=== PATIENT | male | born 1970 ===

== ENCOUNTER 2024-06-13 10:05 | Day surgery (SDC) | payer OTHER ==
[~2024-06-13] VITALS: Ht 172.7 cm; Wt 105.0 kg
[~2024-06-13 10:05] MED LIST: ALBU90OI INH; LOSARTAN POTAS100 M1 PO
[2024-06-13] MEDS ORDERED: Midazolam HCl 1MG / ML 2ML Vial ONE (10:18)
[2024-06-13] MEDS ORDERED: Lactated Ringer's 1,000 ML IV ONE ×2 (10:18→10:33)
[2024-06-13] MEDS ORDERED: VITAMIN D3 (10:24)
--- NOTE | 2024-06-13 10:41 | NUR ---
06/13/24 1041 Angella Francis TIME OUT TAKEN TO VERIFY CORRECT PT, SITE, PROCEDURE AND ALLERGIES. START AT 1035, PT TOLERATED WELL. END 1038
== END 2024-06-13 11:38 | disposition home or self-care (01) ==
LOC: ORSCSDS 10:05
PROVIDERS: Orthopaedic Surgery
PROC: 01N54ZZ Release Median Nerve, Percutaneous Endoscopic Approach (ICD-10-PCS; principal; 2024-06-13 11:15)
DX: G56.01 Carpal tunnel syndrome, right upper limb (principal); I12.9 Hypertensive chronic kidney disease with stage 1 through stage 4 chronic kidney disease, or unspecified chronic kidney disease; N18.9 Chronic kidney disease, unspecified; D64.9 Anemia, unspecified; J45.909 Unspecified asthma, uncomplicated; E78.5 Hyperlipidemia, unspecified; G47.33 Obstructive sleep apnea (adult) (pediatric); Z87.891 Personal history of nicotine dependence; Z79.899 Other long term (current) drug therapy
CPT/HCPCS: J2250; J7120